=== PATIENT | male | born 1980 | race Caucasian/White ===

== ENCOUNTER 2023-12-03 00:01 | Emergency (ER) | payer OTHER ==
[2023-12-03] MEDS ORDERED: HYDROcodone/Acetaminophen 5/325 mg Tablet ONE (00:22)
[2023-12-03] MEDS ORDERED: Meclizine HCl 25 MG TAB ONE (02:32)
== END 2023-12-03 03:00 ==
LOC: EEVIPCON 00:01 → NAV ERS 00:01
DX: S30.0XXA Contusion of lower back and pelvis, initial encounter (principal); S00.83XA Contusion of other part of head, initial encounter; S00.33XA Contusion of nose, initial encounter; S60.222A Contusion of left hand, initial encounter; R29.710 NIHSS score 10; R42 Dizziness and giddiness; Y04.0XXA Assault by unarmed brawl or fight, initial encounter; Z87.891 Personal history of nicotine dependence
CPT/HCPCS: 70450; 70486; 72125; 72131; 99284; G0390